=== PATIENT | female | born 1940 | race Caucasian/White ===

== ENCOUNTER 2018-06-11 04:06 | Inpatient (IN) | payer MEDICARE, BC ==
[2018-06-11] MEDS: DILTIAZEM 25 MG INJ IV (04:46)
[2018-06-11 05:10] LABS: ADD MAN DIFF? NO
[2018-06-11 05:14] LABS: WHITE BLOOD COUNT 5.8 10^3/ul (4.8-10.8)
[2018-06-11 05:14] LABS: BASOPHILS % 0.3 % (0.0-2.0); EOSINOPHILS # 0.1 10^3/ul (0.0-0.5); EOSINOPHILS % 2.1 % (0.0-7.0); HEMATOCRIT 40.7 % (37.0-47.0); HEMOGLOBIN 13.3 g/dl (12.0-16.0); LYMPHOCYTES # 1.8 10^3/ul (0.8-2.9); LYMPHOCYTES % 31.2 % (15.0-51.0); MEAN CORPUSCULAR HEMOGLOBIN 30.3 pg (29.0-33.0); MEAN CORPUSCULAR HGB CONC 32.7 g/dl (32.0-37.0); MEAN CORPUSCULAR VOLUME 92.7 fl (82.0-101.0); MONOCYTE # 0.5 10^3/ul (0.3-0.9); MONOCYTES % 8.7 % (0.0-11.0); NEUTROPHIL # 3.4 10^3/ul (1.6-7.5); NEUTROPHILS % 57.5 % (39.0-77.0); PLATELET COUNT 148 10^3/UL (140-415); RED BLOOD COUNT 4.39 10^6/ul (4.20-5.40); RED CELL DISTRIBUTION WIDTH 13.1 % (11.5-14.5)
[2018-06-11 05:36] LABS: ALANINE AMINOTRANSFERASE 20 IU/L (13-69); ALBUMIN 3.6 g/dl (3.3-4.9); ALBUMIN/GLOBULIN RATIO 1.24; ALKALINE PHOSPHATASE 80 IU/L (42-121); ANION GAP 10 (8-16); ASPARTATE AMINO TRANSFERASE 20 IU/L (15-46); BILIRUBIN,INDIRECT 0.8 mg/dl (0-1.1); BILIRUBIN,TOTAL 0.8 mg/dl (0.2-1.3); BLOOD UREA NITROGEN 27 mg/dl (7-20); CALCIUM 9.3 mg/dl (8.4-10.2); CARBON DIOXIDE 28 mmol/L (21-31); CHLORIDE 108 mmol/L (97-110); CREATININE 0.93 mg/dl (0.44-1.00); GLUCOSE 194 mg/dl (70-220); POTASSIUM 4.5 mmol/L (3.5-5.1); SODIUM 141 mmol/L (135-144); TOTAL PROTEIN 6.5 g/dl (6.1-8.1)
[2018-06-11 05:47] LABS: B-TYPE NATRIURETIC PEPTIDE 297 PG/ML (0-450); TROPONIN-I < 0.012 ng/ml (0.000-0.120)
[2018-06-11] MEDS ORDERED: ONDANSETRON 4 MG INJ IV (06:00)
[2018-06-11] MEDS ORDERED: ACETAMINOPHEN 325 MG TAB PO ×2 (06:00→10:30)
[2018-06-11] MEDS ORDERED: DEXTROSE 50% 50 ML SYRINGE IV ×2 (10:00)
[2018-06-11] MEDS ORDERED: GLUCOSE GEL 15 GRAM TUBE BUCCAL (10:00)
[2018-06-11] MEDS: INSULIN ASPART [NOVOLOG] 3 ML PEN SC ×6 (10:00→20:32)
[2018-06-11] MEDS ORDERED: GLUCAGON 1 MG INJ IM (10:00)
[2018-06-11] MEDS ORDERED: GLUCOSE GEL 15 GRAM TUBE PO ×2 (10:00)
[2018-06-11] MEDS ORDERED: NON-FORMULARY/PATIENT OWN MED (Cholecalciferol (Vitamin D3) (Vitamin D-3) 2,000 UNIT) PO (10:30)
[2018-06-11] MEDS ORDERED: NON-FORMULARY/PATIENT OWN MED (Linagliptin (Tradjenta) 5 MG) PO (10:30)
[2018-06-11] MEDS: LINAGLIPTIN 5 MG TABLET PO (11:00)
[2018-06-11 11:06] LABS: CREATINE KINASE 39 IU/L (23-200)
[2018-06-11] MEDS: FUROSEMIDE 40 MG INJ IV (11:08)
[2018-06-11 11:17] LABS: CK INDEX 1.3
[2018-06-11 11:18] LABS: TROPONIN-I < 0.012 ng/ml (0.000-0.120)
[2018-06-11 11:26] LABS: CK-MB 0.52 ng/ml (0.0-2.4)
[2018-06-11] MEDS: DILTIAZEM (CD) 240 MG CAP PO (11:26)
[2018-06-11] MEDS: LEVOTHYROXINE 125 MCG TAB PO (11:27)
[2018-06-11] MEDS: LISINOPRIL 10 MG TAB PO (11:27)
[2018-06-11] MEDS: METOPROLOL (XL) 50 MG TAB PO (11:27)
[2018-06-11] MEDS: ASPIRIN (EC) 81 MG TAB PO (11:32)
[2018-06-11] MEDS: CHOLECALCIFEROL 2,000 UNIT CAP PO (14:25)
[2018-06-11] MEDS: NYSTATIN 30 GM POWDER BTL TOP ×2 (14:25→20:33)
[2018-06-11 17:11] LABS: CREATINE KINASE 36 IU/L (23-200)
[2018-06-11 17:24] LABS: CK INDEX 1.3; CK-MB 0.47 ng/ml (0.0-2.4); TROPONIN-I < 0.012 ng/ml (0.000-0.120)
[2018-06-11 22:18] LABS: MAGNESIUM 1.9 mg/dl (1.7-2.5)
[2018-06-12] MEDS: ACCU-CHEK XX ×2 (01:57→21:27)
[2018-06-12] MEDS: MAGNESIUM SULFATE 2 GM/50 ML 50 ML IVPB (04:00)
[2018-06-12] MEDS: PANTOPRAZOLE (EC) 40 MG TAB PO (05:32)
[2018-06-12 07:06] LABS: FREE T4 (FREE THYROXINE) 1.32 ng/dl (0.78-2.44)
[2018-06-12 07:27] LABS: HEMOGLOBIN A1C 8.5 % (0-5.9)
[2018-06-12 08:11] LABS: ANION GAP 10 (8-16); BLOOD UREA NITROGEN 28 mg/dl (7-20); CARBON DIOXIDE 26 mmol/L (21-31); CHLORIDE 109 mmol/L (97-110); CHOL/HDL RATIO 4.6 RATIO; CHOLESTEROL 190 mg/dl (100-200); CREATININE 1.03 mg/dl (0.44-1.00); GLUCOSE 213 mg/dl (70-220); HDL CHOLESTEROL 41 mg/dl (33-92); LDL CHOLESTEROL,CALCULATED 121 mg/dl; POTASSIUM 4.2 mmol/L (3.5-5.1); SODIUM 141 mmol/L (135-144); TRIGLYCERIDES 139 mg/dl (0-149)
[2018-06-12] MEDS: INSULIN ASPART [NOVOLOG] 3 ML PEN SC ×7 (08:30→21:00)
[2018-06-12] MEDS: LINAGLIPTIN 5 MG TABLET PO (08:39)
[2018-06-12] MEDS: DILTIAZEM (CD) 240 MG CAP PO (08:41)
[2018-06-12] MEDS: CHOLECALCIFEROL 2,000 UNIT CAP PO (08:41)
[2018-06-12] MEDS: METOPROLOL (XL) 50 MG TAB PO (08:42)
[2018-06-12] MEDS: ASPIRIN (EC) 81 MG TAB PO (08:43)
[2018-06-12] MEDS: LEVOTHYROXINE 125 MCG TAB PO (08:43)
[2018-06-12] MEDS: LISINOPRIL 10 MG TAB PO (08:43)
[2018-06-12] MEDS: FUROSEMIDE 40 MG INJ IV (08:44)
[2018-06-12] MEDS: NYSTATIN 30 GM POWDER BTL TOP ×2 (11:07→21:27)
[2018-06-12 11:32] LABS: ADD MAN DIFF? NO
[2018-06-12] MEDS: INSULIN GLARGINE [LANTus] (100 UNITS/ML) SYG SC (11:32)
[2018-06-12 11:36] LABS: BASOPHILS % 0.4 % (0.0-2.0); EOSINOPHILS # 0.1 10^3/ul (0.0-0.5); EOSINOPHILS % 1.2 % (0.0-7.0); HEMATOCRIT 41.5 % (37.0-47.0); HEMOGLOBIN 13.7 g/dl (12.0-16.0); LYMPHOCYTES # 1.5 10^3/ul (0.8-2.9); LYMPHOCYTES % 26.8 % (15.0-51.0); MEAN CORPUSCULAR HEMOGLOBIN 30.3 pg (29.0-33.0); MEAN CORPUSCULAR VOLUME 91.8 fl (82.0-101.0); MEAN PLATELET VOLUME 11.3 fl (7.4-10.4); MONOCYTE # 0.4 10^3/ul (0.3-0.9); MONOCYTES % 7.6 % (0.0-11.0); NEUTROPHIL # 3.6 10^3/ul (1.6-7.5); NEUTROPHILS % 63.8 % (39.0-77.0); PLATELET COUNT 167 10^3/UL (140-415); RED BLOOD COUNT 4.52 10^6/ul (4.20-5.40); RED CELL DISTRIBUTION WIDTH 13.2 % (11.5-14.5)
[2018-06-12 11:36] LABS: WHITE BLOOD COUNT 5.6 10^3/ul (4.8-10.8)
[2018-06-12] MEDS ORDERED: DIPHENHYDRAMINE 25 MG CAP PO (12:00)
[2018-06-12 12:01] LABS: ANION GAP 8 (8-16); BLOOD UREA NITROGEN 28 mg/dl (7-20); CALCIUM 8.7 mg/dl (8.4-10.2); CARBON DIOXIDE 28 mmol/L (21-31); CHLORIDE 106 mmol/L (97-110); CREATININE 0.98 mg/dl (0.44-1.00); GLUCOSE 252 mg/dl (70-220); POTASSIUM 4.1 mmol/L (3.5-5.1); SODIUM 138 mmol/L (135-144)
[2018-06-12] MEDS: GLYCERIN (ADULT) SUPP PR (18:03)
[2018-06-12] MEDS ORDERED: DILTIAZEM (CD) 240 MG CAP PO (21:00)
[2018-06-12] MEDS: DILTIAZEM (CD) 120 MG CAP PO (21:22)
[2018-06-12] MEDS: METOPROLOL 50 MG TAB PO (21:22)
[2018-06-13 05:46] LABS: ADD MAN DIFF? NO
[2018-06-13 05:50] LABS: BASOPHILS % 0.3 % (0.0-2.0); EOSINOPHILS # 0.2 10^3/ul (0.0-0.5); EOSINOPHILS % 2.3 % (0.0-7.0); HEMOGLOBIN 13.3 g/dl (12.0-16.0); LYMPHOCYTES % 29.4 % (15.0-51.0); MEAN CORPUSCULAR HEMOGLOBIN 30.6 pg (29.0-33.0); MEAN CORPUSCULAR HGB CONC 33.3 g/dl (32.0-37.0); MEAN PLATELET VOLUME 11.1 fl (7.4-10.4); MONOCYTE # 0.5 10^3/ul (0.3-0.9); MONOCYTES % 6.9 % (0.0-11.0); NEUTROPHIL # 4.2 10^3/ul (1.6-7.5); NEUTROPHILS % 60.8 % (39.0-77.0); PLATELET COUNT 151 10^3/UL (140-415); RED BLOOD COUNT 4.35 10^6/ul (4.20-5.40); RED CELL DISTRIBUTION WIDTH 13.2 % (11.5-14.5)
[2018-06-13 05:50] LABS: WHITE BLOOD COUNT 6.9 10^3/ul (4.8-10.8)
[2018-06-13] MEDS: LEVOTHYROXINE 150 MCG TAB PO (06:09)
[2018-06-13] MEDS: PANTOPRAZOLE (EC) 40 MG TAB PO (06:09)
[2018-06-13 06:15] LABS: ANION GAP 8 (8-16); BLOOD UREA NITROGEN 27 mg/dl (7-20); CALCIUM 8.6 mg/dl (8.4-10.2); CARBON DIOXIDE 26 mmol/L (21-31); CHLORIDE 108 mmol/L (97-110); GLUCOSE 154 mg/dl (70-220); POTASSIUM 4.1 mmol/L (3.5-5.1); SODIUM 138 mmol/L (135-144)
[2018-06-13] MEDS: INSULIN ASPART [NOVOLOG] 3 ML PEN SC ×7 (07:38→20:41)
[2018-06-13] MEDS: LISINOPRIL 5 MG TAB PO (08:10)
[2018-06-13] MEDS: METOPROLOL 50 MG TAB PO (08:11)
[2018-06-13] MEDS: DILTIAZEM (CD) 120 MG CAP PO ×2 (08:12→22:26)
[2018-06-13] MEDS: LINAGLIPTIN 5 MG TABLET PO (08:13)
[2018-06-13] MEDS: CHOLECALCIFEROL 2,000 UNIT CAP PO (08:13)
[2018-06-13] MEDS: NYSTATIN 30 GM POWDER BTL TOP ×2 (08:13→22:25)
[2018-06-13] MEDS: FUROSEMIDE 40 MG INJ IV (08:14)
[2018-06-13] MEDS: INSULIN GLARGINE [LANTus] (100 UNITS/ML) SYG SC (08:31)
[2018-06-13] MEDS: ASPIRIN (EC) 81 MG TAB PO (09:00)
[2018-06-13] MEDS: ACCU-CHEK XX (20:41)
[2018-06-13] MEDS: METOPROLOL 25 MG TAB PO (22:27)
[2018-06-14] MEDS: PANTOPRAZOLE (EC) 40 MG TAB PO (05:37)
[2018-06-14] MEDS: LEVOTHYROXINE 150 MCG TAB PO (05:37)
[2018-06-14 06:15] LABS: ADD MAN DIFF? NO
[2018-06-14 06:18] LABS: WHITE BLOOD COUNT 6.5 10^3/ul (4.8-10.8)
[2018-06-14 06:18] LABS: BASOPHILS % 0.6 % (0.0-2.0); EOSINOPHILS # 0.3 10^3/ul (0.0-0.5); EOSINOPHILS % 3.9 % (0.0-7.0); HEMATOCRIT 41.4 % (37.0-47.0); HEMOGLOBIN 13.7 g/dl (12.0-16.0); LYMPHOCYTES # 2.1 10^3/ul (0.8-2.9); LYMPHOCYTES % 31.6 % (15.0-51.0); MEAN CORPUSCULAR HEMOGLOBIN 30.8 pg (29.0-33.0); MEAN CORPUSCULAR HGB CONC 33.1 g/dl (32.0-37.0); MEAN PLATELET VOLUME 11.2 fl (7.4-10.4); MONOCYTE # 0.6 10^3/ul (0.3-0.9); MONOCYTES % 9.7 % (0.0-11.0); NEUTROPHIL # 3.5 10^3/ul (1.6-7.5); PLATELET COUNT 133 10^3/UL (140-415); RED BLOOD COUNT 4.45 10^6/ul (4.20-5.40); RED CELL DISTRIBUTION WIDTH 13.2 % (11.5-14.5)
[2018-06-14 06:47] LABS: ANION GAP 9 (8-16); BLOOD UREA NITROGEN 30 mg/dl (7-20); CALCIUM 8.6 mg/dl (8.4-10.2); CARBON DIOXIDE 26 mmol/L (21-31); CHLORIDE 107 mmol/L (97-110); CREATININE 1.09 mg/dl (0.44-1.00); GLUCOSE 143 mg/dl (70-220); POTASSIUM 4.1 mmol/L (3.5-5.1); SODIUM 138 mmol/L (135-144)
[2018-06-14] MEDS: INSULIN ASPART [NOVOLOG] 3 ML PEN SC ×7 (07:47→21:00)
[2018-06-14] MEDS: LINAGLIPTIN 5 MG TABLET PO (08:43)
[2018-06-14] MEDS: CHOLECALCIFEROL 2,000 UNIT CAP PO (08:43)
[2018-06-14] MEDS: DILTIAZEM (CD) 120 MG CAP PO ×2 (08:44→20:53)
[2018-06-14] MEDS: LISINOPRIL 5 MG TAB PO (08:44)
[2018-06-14] MEDS: NYSTATIN 30 GM POWDER BTL TOP ×2 (08:45→20:52)
[2018-06-14] MEDS: METOPROLOL 25 MG TAB PO ×2 (08:45→20:53)
[2018-06-14] MEDS: FUROSEMIDE 40 MG TAB PO (08:46)
[2018-06-14] MEDS: ASPIRIN (EC) 81 MG TAB PO (09:00)
[2018-06-14] MEDS: INSULIN GLARGINE [LANTus] (100 UNITS/ML) SYG SC (09:02)
[2018-06-15] MEDS: ACCU-CHEK XX (02:00)
[2018-06-15] MEDS: LEVOTHYROXINE 150 MCG TAB PO (05:21)
[2018-06-15] MEDS: PANTOPRAZOLE (EC) 40 MG TAB PO (05:21)
[2018-06-15 06:44] LABS: ANION GAP 12 (8-16); BLOOD UREA NITROGEN 25 mg/dl (7-20); CALCIUM 9.1 mg/dl (8.4-10.2); CARBON DIOXIDE 27 mmol/L (21-31); CHLORIDE 104 mmol/L (97-110); CREATININE 1.09 mg/dl (0.44-1.00); GLUCOSE 182 mg/dl (70-220); POTASSIUM 4.9 mmol/L (3.5-5.1); SODIUM 138 mmol/L (135-144)
[2018-06-15 07:03] LABS: MAGNESIUM 1.8 mg/dl (1.7-2.5)
[2018-06-15] MEDS: INSULIN ASPART [NOVOLOG] 3 ML PEN SC ×7 (07:44→20:13)
[2018-06-15] MEDS: INSULIN GLARGINE [LANTus] (100 UNITS/ML) SYG SC (07:49)
[2018-06-15] MEDS: ASPIRIN (EC) 81 MG TAB PO ×2 (08:27→08:33)
[2018-06-15] MEDS: DILTIAZEM (CD) 120 MG CAP PO ×2 (08:28→20:15)
[2018-06-15] MEDS: CHOLECALCIFEROL 2,000 UNIT CAP PO (08:28)
[2018-06-15] MEDS: LISINOPRIL 5 MG TAB PO (08:28)
[2018-06-15] MEDS: METOPROLOL 25 MG TAB PO ×2 (08:28→20:15)
[2018-06-15] MEDS: FUROSEMIDE 40 MG TAB PO (08:29)
[2018-06-15] MEDS: LINAGLIPTIN 5 MG TABLET PO (08:29)
[2018-06-15] MEDS: NYSTATIN 30 GM POWDER BTL TOP ×2 (08:29→20:13)
[2018-06-15] MEDS ORDERED: LORAZEPAM 0.5 MG TAB PO (11:30)
[2018-06-15] MEDS: MAGNESIUM SULFATE 2 GM/50 ML 50 ML IVPB (13:43)
[2018-06-16] MEDS: ACCU-CHEK XX (01:00)
[2018-06-16] MEDS: LEVOTHYROXINE 150 MCG TAB PO (05:50)
[2018-06-16] MEDS: PANTOPRAZOLE (EC) 40 MG TAB PO (05:50)
[2018-06-16 06:15] LABS: ADD MAN DIFF? NO
[2018-06-16 06:18] LABS: WHITE BLOOD COUNT 5.7 10^3/ul (4.8-10.8)
[2018-06-16 06:18] LABS: BASOPHILS % 0.5 % (0.0-2.0); EOSINOPHILS # 0.3 10^3/ul (0.0-0.5); EOSINOPHILS % 4.4 % (0.0-7.0); HEMATOCRIT 39.5 % (37.0-47.0); HEMOGLOBIN 12.7 g/dl (12.0-16.0); LYMPHOCYTES # 1.6 10^3/ul (0.8-2.9); LYMPHOCYTES % 28.1 % (15.0-51.0); MEAN CORPUSCULAR HEMOGLOBIN 30.2 pg (29.0-33.0); MEAN CORPUSCULAR HGB CONC 32.2 g/dl (32.0-37.0); MEAN CORPUSCULAR VOLUME 93.8 fl (82.0-101.0); MEAN PLATELET VOLUME 10.5 fl (7.4-10.4); MONOCYTE # 0.4 10^3/ul (0.3-0.9); MONOCYTES % 7.5 % (0.0-11.0); NEUTROPHIL # 3.4 10^3/ul (1.6-7.5); NEUTROPHILS % 59.3 % (39.0-77.0); PLATELET COUNT 156 10^3/UL (140-415); RED BLOOD COUNT 4.21 10^6/ul (4.20-5.40); RED CELL DISTRIBUTION WIDTH 13.5 % (11.5-14.5)
[2018-06-16 06:53] LABS: ANION GAP 8 (8-16); BLOOD UREA NITROGEN 26 mg/dl (7-20); CALCIUM 8.5 mg/dl (8.4-10.2); CARBON DIOXIDE 28 mmol/L (21-31); CHLORIDE 107 mmol/L (97-110); CREATININE 1.03 mg/dl (0.44-1.00); GLUCOSE 93 mg/dl (70-220); POTASSIUM 4.3 mmol/L (3.5-5.1); SODIUM 139 mmol/L (135-144)
[2018-06-16] MEDS: INSULIN ASPART [NOVOLOG] 3 ML PEN SC ×7 (08:00→21:00)
[2018-06-16] MEDS: FUROSEMIDE 40 MG TAB PO (08:07)
[2018-06-16] MEDS: CHOLECALCIFEROL 2,000 UNIT CAP PO (08:08)
[2018-06-16] MEDS: LINAGLIPTIN 5 MG TABLET PO (08:08)
[2018-06-16] MEDS: METOPROLOL 25 MG TAB PO ×2 (08:08→20:57)
[2018-06-16] MEDS: DILTIAZEM (CD) 120 MG CAP PO (08:10)
[2018-06-16] MEDS: LISINOPRIL 5 MG TAB PO (08:11)
[2018-06-16] MEDS: INSULIN GLARGINE [LANTus] (100 UNITS/ML) SYG SC (08:26)
[2018-06-16] MEDS: NYSTATIN 30 GM POWDER BTL TOP ×2 (09:00→21:06)
[2018-06-17] MEDS: ACCU-CHEK XX (02:00)
[2018-06-17] MEDS: PANTOPRAZOLE (EC) 40 MG TAB PO (06:07)
[2018-06-17] MEDS: LEVOTHYROXINE 150 MCG TAB PO (06:08)
[2018-06-17] MEDS: INSULIN ASPART [NOVOLOG] 3 ML PEN SC ×7 (08:00→20:52)
[2018-06-17] MEDS: METOPROLOL 25 MG TAB PO ×2 (08:34→20:49)
[2018-06-17] MEDS: LISINOPRIL 5 MG TAB PO (08:34)
[2018-06-17] MEDS: FUROSEMIDE 40 MG TAB PO (08:34)
[2018-06-17] MEDS: DILTIAZEM (CD) 180 MG CAP PO (08:34)
[2018-06-17] MEDS: LINAGLIPTIN 5 MG TABLET PO (08:34)
[2018-06-17] MEDS: CHOLECALCIFEROL 2,000 UNIT CAP PO (08:35)
[2018-06-17] MEDS: INSULIN GLARGINE [LANTus] (100 UNITS/ML) SYG SC (08:44)
[2018-06-17] MEDS: NYSTATIN 30 GM POWDER BTL TOP ×2 (08:55→20:49)
[2018-06-17] MEDS ORDERED: MAGNESIUM SULFATE 2 GM in DEXTROSE 5% 100 ML IV (11:30)
[2018-06-17] MEDS: MAG SULFATE 2GM IN 50 ML IVPB (13:50)
[2018-06-18] MEDS: ACCU-CHEK XX (02:00)
[2018-06-18] MEDS: LEVOTHYROXINE 150 MCG TAB PO (07:05)
[2018-06-18] MEDS: PANTOPRAZOLE (EC) 40 MG TAB PO (07:05)
[2018-06-18] MEDS: INSULIN ASPART [NOVOLOG] 3 ML PEN SC ×7 (08:00→20:32)
[2018-06-18] MEDS: CHOLECALCIFEROL 2,000 UNIT CAP PO (08:30)
[2018-06-18] MEDS: FUROSEMIDE 40 MG TAB PO (08:31)
[2018-06-18] MEDS: DILTIAZEM (CD) 180 MG CAP PO (08:31)
[2018-06-18] MEDS: LISINOPRIL 5 MG TAB PO (08:32)
[2018-06-18] MEDS: LINAGLIPTIN 5 MG TABLET PO (08:32)
[2018-06-18] MEDS: METOPROLOL 25 MG TAB PO ×2 (08:32→20:34)
[2018-06-18] MEDS: NYSTATIN 30 GM POWDER BTL TOP ×2 (08:35→20:33)
[2018-06-18] MEDS: INSULIN GLARGINE [LANTus] (100 UNITS/ML) SYG SC (08:43)
[2018-06-19] MEDS: ACCU-CHEK XX (02:00)
[2018-06-19] MEDS: LEVOTHYROXINE 150 MCG TAB PO (06:08)
[2018-06-19] MEDS: PANTOPRAZOLE (EC) 40 MG TAB PO (06:08)
[2018-06-19] MEDS: INSULIN ASPART [NOVOLOG] 3 ML PEN SC ×7 (07:56→20:53)
[2018-06-19] MEDS: METOPROLOL 25 MG TAB PO ×2 (09:00→20:48)
[2018-06-19] MEDS: CHOLECALCIFEROL 2,000 UNIT CAP PO (09:56)
[2018-06-19] MEDS: NYSTATIN 30 GM POWDER BTL TOP ×2 (09:56→20:53)
[2018-06-19] MEDS: LISINOPRIL 5 MG TAB PO (09:56)
[2018-06-19] MEDS: FUROSEMIDE 40 MG TAB PO (09:56)
[2018-06-19] MEDS: DILTIAZEM (CD) 180 MG CAP PO (09:57)
[2018-06-19] MEDS: LINAGLIPTIN 5 MG TABLET PO (10:00)
[2018-06-19] MEDS: INSULIN GLARGINE [LANTus] (100 UNITS/ML) SYG SC (12:31)
[2018-06-20] MEDS: ACCU-CHEK XX (02:00)
[2018-06-20 05:43] LABS: ADD MAN DIFF? NO
[2018-06-20 05:46] LABS: WHITE BLOOD COUNT 6.8 10^3/ul (4.8-10.8)
[2018-06-20 05:46] LABS: BASOPHILS % 0.6 % (0.0-2.0); EOSINOPHILS # 0.2 10^3/ul (0.0-0.5); EOSINOPHILS % 3.1 % (0.0-7.0); HEMATOCRIT 39.3 % (37.0-47.0); HEMOGLOBIN 12.8 g/dl (12.0-16.0); LYMPHOCYTES # 1.8 10^3/ul (0.8-2.9); LYMPHOCYTES % 26.1 % (15.0-51.0); MEAN CORPUSCULAR HEMOGLOBIN 30.5 pg (29.0-33.0); MEAN CORPUSCULAR HGB CONC 32.6 g/dl (32.0-37.0); MEAN CORPUSCULAR VOLUME 93.6 fl (82.0-101.0); MEAN PLATELET VOLUME 10.6 fl (7.4-10.4); MONOCYTE # 0.6 10^3/ul (0.3-0.9); MONOCYTES % 9.2 % (0.0-11.0); NEUTROPHIL # 4.1 10^3/ul (1.6-7.5); NEUTROPHILS % 60.7 % (39.0-77.0); PLATELET COUNT 162 10^3/UL (140-415); RED CELL DISTRIBUTION WIDTH 13.6 % (11.5-14.5)
[2018-06-20] MEDS: PANTOPRAZOLE (EC) 40 MG TAB PO (06:00)
[2018-06-20] MEDS: LEVOTHYROXINE 150 MCG TAB PO (06:00)
[2018-06-20 06:12] LABS: ANION GAP 9 (8-16); BLOOD UREA NITROGEN 32 mg/dl (7-20); CALCIUM 9.1 mg/dl (8.4-10.2); CARBON DIOXIDE 30 mmol/L (21-31); CHLORIDE 104 mmol/L (97-110); CREATININE 1.28 mg/dl (0.44-1.00); GLUCOSE 101 mg/dl (70-220); POTASSIUM 4.5 mmol/L (3.5-5.1); SODIUM 138 mmol/L (135-144)
[2018-06-20] MEDS: INSULIN ASPART [NOVOLOG] 3 ML PEN SC ×7 (08:00→21:00)
[2018-06-20] MEDS: LISINOPRIL 5 MG TAB PO (08:02)
[2018-06-20] MEDS: NYSTATIN 30 GM POWDER BTL TOP ×2 (08:02→21:58)
[2018-06-20] MEDS: METOPROLOL 25 MG TAB PO ×2 (08:03→21:00)
[2018-06-20] MEDS: CHOLECALCIFEROL 2,000 UNIT CAP PO (08:03)
[2018-06-20] MEDS: FUROSEMIDE 40 MG TAB PO (08:03)
[2018-06-20] MEDS: LINAGLIPTIN 5 MG TABLET PO (08:03)
[2018-06-20] MEDS: DILTIAZEM (CD) 180 MG CAP PO (08:03)
[2018-06-20] MEDS: INSULIN GLARGINE [LANTus] (100 UNITS/ML) SYG SC (08:24)
[2018-06-21] MEDS: ACCU-CHEK XX (02:00)
[2018-06-21] MEDS: LEVOTHYROXINE 150 MCG TAB PO (06:00)
[2018-06-21] MEDS: PANTOPRAZOLE (EC) 40 MG TAB PO (06:01)
[2018-06-21] MEDS: INSULIN ASPART [NOVOLOG] 3 ML PEN SC ×4 (07:48→11:48)
[2018-06-21] MEDS: INSULIN GLARGINE [LANTus] (100 UNITS/ML) SYG SC (07:51)
[2018-06-21 08:58] LABS: ANION GAP 10 (8-16); BLOOD UREA NITROGEN 36 mg/dl (7-20); CALCIUM 9.1 mg/dl (8.4-10.2); CARBON DIOXIDE 29 mmol/L (21-31); CHLORIDE 104 mmol/L (97-110); CREATININE 1.32 mg/dl (0.44-1.00); GLUCOSE 92 mg/dl (70-220); POTASSIUM 4.2 mmol/L (3.5-5.1); SODIUM 139 mmol/L (135-144)
[2018-06-21] MEDS: CHOLECALCIFEROL 2,000 UNIT CAP PO (08:59)
[2018-06-21] MEDS: DILTIAZEM (CD) 180 MG CAP PO (08:59)
[2018-06-21] MEDS: FUROSEMIDE 40 MG TAB PO (08:59)
[2018-06-21] MEDS: LINAGLIPTIN 5 MG TABLET PO (09:00)
[2018-06-21] MEDS: METOPROLOL 25 MG TAB PO (09:00)
[2018-06-21] MEDS: LISINOPRIL 5 MG TAB PO (09:00)
[2018-06-21] MEDS: NYSTATIN 30 GM POWDER BTL TOP (09:00)
== END 2018-06-21 16:07 | disposition home or self-care (01) | DRG 308 ==
LOC: 6WM 16:57 → E/R 04:06 → 6WM 05:37
DX: I48.0 Paroxysmal atrial fibrillation (principal); I50.33 Acute on chronic diastolic (congestive) heart failure; Z68.43 Body mass index [BMI] 50.0-59.9, adult; I11.0 Hypertensive heart disease with heart failure; E66.01 Morbid (severe) obesity due to excess calories; R60.9 Edema, unspecified; E11.65 Type 2 diabetes mellitus with hyperglycemia; B36.9 Superficial mycosis, unspecified; E03.9 Hypothyroidism, unspecified; I67.1 Cerebral aneurysm, nonruptured
CPT/HCPCS: 36415; 71045; 80048; 80053; 80061; 82550; 82553; 82962; 83036; 83735; 83880; 84439; 84443; 84484; 85025; 93005; 93306; 96374; 97110; 97116; 97162; 97530; 99291-25

== ENCOUNTER 2019-02-19 12:34 | Emergency (ER) | payer MEDICARE, BC | END 2019-02-19 15:25 | disposition left against medical advice (07) | LOC: E/R 12:34 | DX: Z48.01 Encounter for change or removal of surgical wound dressing (principal); I10 Essential (primary) hypertension; E11.9 Type 2 diabetes mellitus without complications; E66.9 Obesity, unspecified; E03.9 Hypothyroidism, unspecified; I50.9 Heart failure, unspecified; Z79.4 Long term (current) use of insulin; Z79.82 Long term (current) use of aspirin | CPT/HCPCS: 99281 ==